=== PATIENT | male | born 1945 | race African-American/Black ===

== ENCOUNTER 2021-10-22 09:47 | Inpatient (IN) | payer OTHER ==
[2021-10-22] MEDS ORDERED: METHOCARBAMOL 500 MG TABLET PO ONE (10:04)
[2021-10-22] MEDS ORDERED: KETOROLAC TROMETHAMINE 15 MG/ML VIAL IM ONE (10:04)
[2021-10-22] MEDS ORDERED: LIDOCAINE 5% TOPICAL PATCH TP ONE (10:04)
[2021-10-22] MEDS ORDERED: LIDOCAINE 5% TOPICAL PATCH ONE (10:24)
[2021-10-22] MEDS ORDERED: KETOROLAC TROMETHAMINE 15 MG/ML VIAL ONE (10:25)
[2021-10-22] MEDS ORDERED: METHOCARBAMOL 500 MG TABLET ONE (10:25)
[2021-10-22 14:44] LABS: HEMATOCRIT 37.3 % (35.4-49); HEMOGLOBIN 12.1 GM/dL (11.7-16.9); MCHC 32.4 g/dl (32.0-35.9); MEAN CELL VOLUME 83.4 fl (80-96); PLATELET COUNT 249 10^3/uL (134-434); RBC 4.47 M/mm3 (4.00-5.60); RDW 14.6 % (11.9-15.9); WHITE BLOOD COUNT 7.2 K/mm3 (4.0-10.0)
[2021-10-22 15:05] LABS: ACTIVATED PTT 35.5 SECONDS (25.2-36.5); CALCIUM 8.8 mg/dL (8.5-10.1); INR 1.19 (0.83-1.09); PROTHROMBIN TIME (PATIENT) 13.7 SEC (9.7-13.0)
[2021-10-22 15:06] LABS: BLOOD UREA NITROGEN 16.8 mg/dL (7-18)
[2021-10-22 15:09] LABS: ALBUMIN 3.3 g/dl (3.4-5.0); CREATININE 0.8 mg/dL (0.55-1.3)
[2021-10-22 15:10] LABS: BILIRUBIN,TOTAL 0.4 mg/dL (0.2-1)
[2021-10-22 15:14] LABS: TOT PROT 6.7 g/dl (6.4-8.2)
[2021-10-22] MEDS ORDERED: PANTOPRAZOLE SODIUM 40 MG VIAL IVPUSH ONE (16:38)
[2021-10-22] MEDS ORDERED: DEXAMETHASONE SOD PHOSPHATE 10 MG/1 ML VIAL IVPUSH ONE (16:38)
[2021-10-22] MEDS ORDERED: PANTOPRAZOLE SODIUM 40 MG/100 ML BAG IVPB ONE (17:47)
[2021-10-22] MEDS ORDERED: DEXAMETHASONE SOD PHOSPHATE 10 MG/1 ML VIAL ONE ×2 (17:47→19:18)
[2021-10-22] MEDS ORDERED: ACETAMINOPHEN 325 MG TABLET (FP) PO ONE (18:00)
[2021-10-22] MEDS ORDERED: ACETAMINOPHEN 325 MG TABLET (FP) ONE (19:18)
[2021-10-22] MEDS ORDERED: ENOXAPARIN NA (PORCINE) 40 MG/0.4 ML DISP.SYRIN SQ ONE (19:19)
[2021-10-22] MEDS: ENOXAPARIN NA (PORCINE) 40 MG/0.4 ML DISP.SYRIN SQ SCH (20:04)
[2021-10-22] MEDS ORDERED: ACETAMINOPHEN 1000 MG/100 ML BAG IVPB SCH (22:00)
[2021-10-22] MEDS ORDERED: DEXAMETHASONE 4 MG TABLET (FP) ONE (22:48)
[2021-10-22] MEDS ORDERED: GABAPENTIN 100 MG CAPSULE ONE (22:48)
[2021-10-22] MEDS: GABAPENTIN 100 MG CAPSULE PO SCH (22:54)
[2021-10-22] MEDS: DEXAMETHASONE 4 MG TABLET (FP) PO SCH (22:54)
[2021-10-23] MEDS ORDERED: ACETAMINOPHEN 1000 MG/100 ML BAG IVPB SCH (00:01)
[2021-10-23 00:44] VITALS: BMI 26.2
[2021-10-23] MEDS: GABAPENTIN 100 MG CAPSULE PO SCH ×3 (05:46→21:33)
[2021-10-23 07:40] LABS: BASO % 0.1 % (0-2.0); HEMATOCRIT 38.3 % (35.4-49); HEMOGLOBIN 12.7 GM/dL (11.7-16.9); LYMPH % 11.3 % (8-40); MCH 27.3 pg (25.7-33.7); MCHC 33.1 g/dl (32.0-35.9); MEAN CELL VOLUME 82.5 fl (80-96); MEAN PLT VOLUME 7.9 fl (7.5-11.1); MONO % 1.3 % (3.8-10.2); NEUT % 87.3 % (42.8-82.8); PLATELET COUNT 283 10^3/uL (134-434); RBC 4.65 M/mm3 (4.00-5.60); RDW 14.5 % (11.9-15.9); WHITE BLOOD COUNT 6.2 K/mm3 (4.0-10.0)
[2021-10-23 07:54] LABS: CALCIUM 8.8 mg/dL (8.5-10.1)
[2021-10-23 07:55] LABS: ALBUMIN 3.1 g/dl (3.4-5.0)
[2021-10-23 07:58] LABS: CREATININE 1.1 mg/dL (0.55-1.3)
[2021-10-23 07:59] LABS: BILIRUBIN,TOTAL 0.4 mg/dL (0.2-1); TOT PROT 7.1 g/dl (6.4-8.2)
[2021-10-23] MEDS ORDERED: MELATONIN 5 MG TABLETS PO PRN (08:00)
[2021-10-23] MEDS ORDERED: ACETAMINOPHEN 325 MG TABLET (FP) PO PRN (08:19)
[2021-10-23] MEDS: PANTOPRAZOLE 40 MG TABLET PO SCH (09:10)
[2021-10-23] MEDS: ENOXAPARIN NA (PORCINE) 40 MG/0.4 ML DISP.SYRIN SQ SCH (09:10)
[2021-10-23] MEDS: DEXAMETHASONE 4 MG TABLET (FP) PO SCH ×2 (09:10→21:33)
[2021-10-23] MEDS ORDERED: FAMOTIDINE 20 MG TABLET PO SCH (10:00)
[2021-10-23] MEDS ORDERED: INSULIN SLIDING SCALE (NOVOLOG) 1 VIAL SQ SCH (11:00)
[2021-10-23 11:55] LABS: EPI CELLS 2 /uL (0-25.1); HYALINE CASTS 0 /uL (0-3.1); URINE APPEARANCE CLEAR; URINE BACTERIA 4 /uL (0-1359); URINE BILIRUBIN NEGATIVE (NEGATIVE); URINE COLOR YELLOW; URINE GLUCOSE (UA) NEGATIVE (NEGATIVE); URINE KETONE NEGATIVE (NEGATIVE); URINE LEUK ESTERASE NEGATIVE (NEGATIVE); URINE NITRITE NEGATIVE (NEGATIVE); URINE PROTEIN NEGATIVE (NEGATIVE); URINE RBC 909 /uL (0-23.9); URINE UROBILINOGEN 0.2 mg/dL (0.2-1.0); URINE WBC 2 /uL (0-25.8)
[2021-10-23] MEDS ORDERED: CEFTRIAXONE 2 GM in DEXTROSE 5%-WATER - 2 GM/50 ML IVPB IVPB ONE (20:43)
[2021-10-23] MEDS ORDERED: SODIUM PHOSPHATE/NA BIPHOS 133 ML ENEMA PR ONE (20:45)
[2021-10-23] MEDS ORDERED: DEXTROSE 5%-WATER - 50 ML IVPB ONE (21:24)
[2021-10-24] MEDS: GABAPENTIN 100 MG CAPSULE PO SCH ×3 (05:33→21:31)
[2021-10-24 07:34] LABS: HEMATOCRIT 35.9 % (35.4-49); HEMOGLOBIN 12.1 GM/dL (11.7-16.9); LYMPH % 7.1 % (8-40); MCH 27.6 pg (25.7-33.7); MCHC 33.8 g/dl (32.0-35.9); MEAN CELL VOLUME 81.7 fl (80-96); MEAN PLT VOLUME 7.6 fl (7.5-11.1); MONO % 2.7 % (3.8-10.2); NEUT % 90.2 % (42.8-82.8); PLATELET COUNT 268 10^3/uL (134-434); RDW 14.7 % (11.9-15.9); WHITE BLOOD COUNT 11.4 K/mm3 (4.0-10.0)
[2021-10-24 07:39] LABS: INR 1.13 (0.83-1.09)
[2021-10-24 07:40] LABS: ACTIVATED PTT 30.7 SECONDS (25.2-36.5)
[2021-10-24 08:04] LABS: ALBUMIN 3.2 g/dl (3.4-5.0); BLOOD UREA NITROGEN 24.5 mg/dL (7-18); PHOSPHOROUS 3.5 mg/dL (2.5-4.9)
[2021-10-24 08:05] LABS: BILIRUBIN,TOTAL 0.3 mg/dL (0.2-1); TOT PROT 6.8 g/dl (6.4-8.2)
[2021-10-24 08:06] LABS: CALCIUM 8.9 mg/dL (8.5-10.1)
[2021-10-24 08:07] LABS: CREATININE 0.9 mg/dL (0.55-1.3)
[2021-10-24 08:07] LABS: CARCINOEMBRYONIC ANTIGEN 2.3 ng/mL (0.0-4.7)
[2021-10-24] MEDS ORDERED: SODIUM PHOSPHATE/NA BIPHOS 133 ML ENEMA PR ONE (10:00)
[2021-10-24] MEDS: DEXAMETHASONE 4 MG TABLET (FP) PO SCH ×2 (10:01→21:31)
[2021-10-24] MEDS: PANTOPRAZOLE 40 MG TABLET PO SCH (10:01)
[2021-10-24] MEDS ORDERED: MIDAZOLAM HCL 2 MG/2 ML SINGLE DOSE VIAL ONE (11:56)
[2021-10-24] MEDS ORDERED: ONDANSETRON 4 MG/2 ML VIAL IVPUSH PRN (14:10)
[2021-10-24] MEDS ORDERED: PROMETHAZINE HCL 25 MG/1 ML VIAL IVPUSH PRN (14:10)
[2021-10-24] MEDS ORDERED: LACTATED RINGERS SOLUTION 1,000 ML IV SCH (14:15)
[2021-10-25] MEDS: GABAPENTIN 100 MG CAPSULE PO SCH ×3 (05:55→21:40)
[2021-10-25 07:22] LABS: BASO % 0.1 % (0-2.0); HEMATOCRIT 36.2 % (35.4-49); HEMOGLOBIN 11.9 GM/dL (11.7-16.9); LYMPH % 12.8 % (8-40); MCH 27.4 pg (25.7-33.7); MEAN CELL VOLUME 82.8 fl (80-96); MEAN PLT VOLUME 7.6 fl (7.5-11.1); MONO % 3.1 % (3.8-10.2); PLATELET COUNT 253 10^3/uL (134-434); RBC 4.37 M/mm3 (4.00-5.60); RDW 14.8 % (11.9-15.9)
[2021-10-25 07:38] LABS: CALCIUM 8.5 mg/dL (8.5-10.1)
[2021-10-25 07:39] LABS: MAGNESIUM 2.3 mg/dL (1.8-2.4)
[2021-10-25 07:41] LABS: ALBUMIN 2.7 g/dl (3.4-5.0); BLOOD UREA NITROGEN 24.8 mg/dL (7-18)
[2021-10-25 07:42] LABS: CREATININE 0.9 mg/dL (0.55-1.3); PHOSPHOROUS 2.9 mg/dL (2.5-4.9)
[2021-10-25 07:43] LABS: BILIRUBIN,TOTAL 0.3 mg/dL (0.2-1)
[2021-10-25] MEDS: DEXAMETHASONE 4 MG TABLET (FP) PO SCH ×2 (10:14→21:40)
[2021-10-25] MEDS: PANTOPRAZOLE 40 MG TABLET PO SCH (10:14)
[2021-10-25] MEDS ORDERED: LORazepam 2 MG/ML SDV VIAL IVPUSH PRN (14:21)
[2021-10-25] MEDS: BICALUTAMIDE 50 MG TABLET (FP) PO SCH (21:40)
[2021-10-26 06:14] VITALS: PULSE 73
[2021-10-26] MEDS: GABAPENTIN 100 MG CAPSULE PO SCH ×2 (06:36→14:24)
[2021-10-26 08:51] LABS: HEMATOCRIT 36.1 % (35.4-49); HEMOGLOBIN 12.2 GM/dL (11.7-16.9); MCH 27.6 pg (25.7-33.7); MCHC 33.7 g/dl (32.0-35.9); MEAN CELL VOLUME 81.9 fl (80-96); MEAN PLT VOLUME 7.6 fl (7.5-11.1); PLATELET COUNT 266 10^3/uL (134-434); RDW 14.4 % (11.9-15.9); WHITE BLOOD COUNT 9.1 K/mm3 (4.0-10.0)
[2021-10-26 09:01] LABS: PHOSPHOROUS 3.4 mg/dL (2.5-4.9)
[2021-10-26 09:02] LABS: ALBUMIN 2.8 g/dl (3.4-5.0); BLOOD UREA NITROGEN 24.2 mg/dL (7-18)
[2021-10-26 09:03] LABS: TOT PROT 6.1 g/dl (6.4-8.2)
[2021-10-26 09:04] LABS: BILIRUBIN,TOTAL 0.3 mg/dL (0.2-1); CALCIUM 8.6 mg/dL (8.5-10.1); CREATININE 0.9 mg/dL (0.55-1.3); MAGNESIUM 2.4 mg/dL (1.8-2.4)
[2021-10-26] MEDS: PANTOPRAZOLE 40 MG TABLET PO SCH (09:25)
[2021-10-26] MEDS: BICALUTAMIDE 50 MG TABLET (FP) PO SCH (09:25)
[2021-10-26] MEDS: DEXAMETHASONE 4 MG TABLET (FP) PO SCH (09:26)
[2021-10-26 09:53] LABS: ANISOCYTOSIS 3+; MACROCYTOSIS 0
[2021-10-26] MEDS ORDERED: BICALUTAMIDE 50 MG TABLET (FP) PO SCH (10:00)
[2021-10-26 15:19] VITALS: BP 128/69; TEMP 98.5
== END 2021-10-26 17:10 | disposition home or self-care (01) | DRG 478 ==
LOC: JER 09:47 → JERBED 12:32 → J7W 10-23 00:10
PROVIDERS: ADMIT Internal Medicine
PROC: 0QB23ZX Excision of Right Pelvic Bone, Percutaneous Approach, Diagnostic (ICD-10-PCS; principal; 2021-10-24)
DX: C79.51 Secondary malignant neoplasm of bone (principal); C78.7 Secondary malignant neoplasm of liver and intrahepatic bile duct; C61 Malignant neoplasm of prostate; M54.16 Radiculopathy, lumbar region; G47.00 Insomnia, unspecified; R74.01 Elevation of levels of liver transaminase levels; M62.838 Other muscle spasm; D72.829 Elevated white blood cell count, unspecified
CPT/HCPCS: 20220; 36415; 71045-TC-FY; 71260-TC; 72125-TC; 72131-TC; 72142-TC; 72147-TC; 72149-TC; 74177-TC; 80053; 81003; 82105; 82378; 82962; 83735; 84100; 84153; 85025; 85027; 85610; 85730; 86301; 86705; 86708; 86803; 87340; 87517; 88305-TC; 88311-TC; 93005; 93010; 97116-GP; 97161-GP; 99285-25; A9579; C9803-CS; J1100; Q9967; U0003; U0005

== ENCOUNTER 2021-11-02 09:03 | Emergency (ER) | payer OTHER ==
[2021-11-02 09:14] VITALS: BP 163/81; PULSE 84; TEMP 97.6; BMI 26.6
[2021-11-02] MEDS ORDERED: POLYETHYLENE GLYCOL (HEALTHYLAX) 3350 17 GM PACKET PO ONE (10:00)
[2021-11-02] MEDS ORDERED: LACTULOSE 20 GM/30 ML UDC (FOR ORAL USE ONLY) PO ONE (10:33)
[2021-11-02] MEDS ORDERED: LACTULOSE 20 GM/30 ML UDC (FOR ORAL USE ONLY) ONE (10:41)
[2021-11-02] MEDS ORDERED: POLYETHYLENE GLYCOL (HEALTHYLAX) 3350 17 GM PACKET ONE (11:59)
[2021-11-03] MEDS ORDERED: POLYETHYLENE GLYCOL (HEALTHYLAX) 3350 17 GM PACKET PO ONE (10:00)
== END 2021-11-02 13:23 | disposition home or self-care (01) ==
LOC: JERFT 09:03
DX: K59.00 Constipation, unspecified (principal)
CPT/HCPCS: 74019-TC-FY; 99283-25

== ENCOUNTER 2021-12-21 05:00 | Day surgery (SDC) | payer OTHER ==
[2021-12-20 09:54] VITALS: BMI 26.6
[2021-12-21 15:02] VITALS: BP 139/71; PULSE 79; TEMP 98.6
== END 2021-12-21 15:00 | disposition home or self-care (01) ==
LOC: JRADIR 05:00
PROVIDERS: ATTEND Internal Medicine Hematology & Oncology
PROC: 0QB23ZX Excision of Right Pelvic Bone, Percutaneous Approach, Diagnostic (ICD-10-PCS; principal; 2021-12-21)
DX: C79.51 Secondary malignant neoplasm of bone (principal)
CPT/HCPCS: 20220; 88305-TC; 88311-TC; 88341-TC; 88342-TC

== ENCOUNTER 2022-01-02 14:54 | Emergency (ER) | payer OTHER ==
[2022-01-02 15:15] VITALS: BP 123/70; PULSE 73; TEMP 98.2; BMI 26.6
[2022-01-02] MEDS ORDERED: METHOCARBAMOL 750 MG TAB PO ONE (17:25)
[2022-01-02] MEDS ORDERED: ACETAMINOPHEN 500 MG TABLET (FP) PO ONE (17:25)
[2022-01-02] MEDS ORDERED: ACETAMINOPHEN 325 MG TABLET (FP) ONE (17:45)
[2022-01-02] MEDS ORDERED: METHOCARBAMOL 500 MG TABLET ONE (17:50)
== END 2022-01-02 20:35 | disposition home or self-care (01) ==
LOC: JER 14:54
DX: M25.551 Pain in right hip (principal); C41.9 Malignant neoplasm of bone and articular cartilage, unspecified
CPT/HCPCS: 72170-TC-FY; 73502-TC-RT-FY; 73552-TC-RT-FY; 99284-25

== ENCOUNTER 2022-01-25 07:16 | Day surgery (SDC) | payer OTHER ==
[2022-01-25] MEDS ORDERED: LEUPROLIDE ACETATE 22.5 MG DIS IM ONE (10:00)
[2022-01-25 15:20] LABS: BASO % 0.6 % (0-2.0); EOS % 3.1 % (0-4.5); HEMOGLOBIN 11.5 GM/dL (11.7-16.9); LYMPH % 19.6 % (8-40); MCH 28.2 pg (25.7-33.7); MCHC 33.8 g/dl (32.0-35.9); MEAN CELL VOLUME 83.4 fl (80-96); MEAN PLT VOLUME 7.1 fl (7.5-11.1); MONO % 8.7 % (3.8-10.2); PLATELET COUNT 130 10^3/uL (134-434); RBC 4.07 M/mm3 (4.00-5.60); RDW 15.9 % (11.9-15.9)
[2022-01-25 15:49] LABS: CALCIUM 8.5 mg/dL (8.5-10.1)
[2022-01-25 15:50] LABS: ALBUMIN 3.3 g/dl (3.4-5.0); BLOOD UREA NITROGEN 9.7 mg/dL (7-18)
[2022-01-25 15:53] LABS: CREATININE 0.9 mg/dL (0.55-1.3)
[2022-01-25 15:55] LABS: BILIRUBIN,TOTAL 0.4 mg/dL (0.2-1); TOT PROT 5.9 g/dl (6.4-8.2)
[2022-01-25 17:03] VITALS: PULSE 61; TEMP 97.7
[2022-01-25 17:29] VITALS: BP 140/76; RESP 16
== END 2022-01-25 17:51 | disposition home or self-care (01) ==
LOC: JONCCHEMO 07:16
PROVIDERS: ATTEND Internal Medicine Hematology & Oncology
DX: Z51.11 Encounter for antineoplastic chemotherapy (principal); C61 Malignant neoplasm of prostate; C79.51 Secondary malignant neoplasm of bone
CPT/HCPCS: 36415; 80053; 85025; 96402; J9217

== ENCOUNTER 2022-04-25 13:48 | Day surgery (SDC) | payer OTHER ==
[~2022-04-25 13:48] MED LIST: LEUPROLIDE ACETATE 22.5 MG DIS IM ONE
[2022-04-25 15:32] VITALS: BP 134/84; PULSE 87; RESP 18; TEMP 98
== END 2022-04-25 14:25 | disposition home or self-care (01) ==
LOC: JONCCHEMO 13:48
PROVIDERS: ATTEND Internal Medicine Hematology & Oncology
DX: Z51.11 Encounter for antineoplastic chemotherapy (principal); C61 Malignant neoplasm of prostate; C79.51 Secondary malignant neoplasm of bone
CPT/HCPCS: 96402; J9217

== ENCOUNTER 2022-07-25 17:13 | Day surgery (SDC) | payer OTHER ==
[2022-07-25 18:02] LABS: BASO % 0.7 % (0-2.0); EOS % 1.3 % (0-4.5); HEMATOCRIT 39.2 % (35.4-49); HEMOGLOBIN 12.9 GM/dL (11.7-16.9); LYMPH % 29.1 % (8-40); MCH 27.9 pg (25.7-33.7); MEAN CELL VOLUME 84.7 fl (80-96); MEAN PLT VOLUME 8.2 fl (7.5-11.1); MONO % 7.8 % (3.8-10.2); NEUT % 61.1 % (42.8-82.8); PLATELET COUNT 187 10^3/uL (134-434); RBC 4.62 M/mm3 (4.00-5.60); RDW 13.8 % (11.9-15.9); WHITE BLOOD COUNT 5.2 K/mm3 (4.0-10.0)
[2022-07-25 18:18] VITALS: BP 158/79; PULSE 75; RESP 18; TEMP 98.4
[2022-07-25 18:20] LABS: BLOOD UREA NITROGEN 21.4 mg/dL (7-18); CALCIUM 8.9 mg/dL (8.5-10.1)
[2022-07-25 18:21] LABS: ALBUMIN 3.7 g/dl (3.4-5.0); MAGNESIUM 2.2 mg/dL (1.8-2.4)
[2022-07-25 18:23] LABS: BILIRUBIN,DIRECT 0.1 mg/dL (0.0-0.2); CREATININE 1.1 mg/dL (0.55-1.3)
[2022-07-25 18:25] LABS: BILIRUBIN,TOTAL 0.2 mg/dL (0.2-1); TOT PROT 6.8 g/dl (6.4-8.2)
== END 2022-07-25 17:50 | disposition home or self-care (01) ==
LOC: JONCCHEMO 17:13 → J7W 17:14 → JONCCHEMO 17:50
PROVIDERS: ATTEND Internal Medicine Hematology & Oncology
DX: Z51.11 Encounter for antineoplastic chemotherapy (principal); C61 Malignant neoplasm of prostate
CPT/HCPCS: 36415; 80048; 80076; 83735; 84153; 84402; 84403; 85025; 96402; J9217